=== PATIENT | female | born 1950 | race Caucasian/White ===

== ENCOUNTER 2016-12-04 13:46 | Emergency (ER) | payer MEDICARE, OTHER ==
[~2016-12-04 13:46] MED LIST: ESTRACE0.5 MG; HCTZ; LISINOPRIL; SYNTHROID0.15 MG
== END 2016-12-04 14:14 | disposition home or self-care (01) ==
LOC: SED 13:46
DX: T78.3XXA Angioneurotic edema, initial encounter (principal); I10 Essential (primary) hypertension; Z90.710 Acquired absence of both cervix and uterus; F17.210 Nicotine dependence, cigarettes, uncomplicated
CPT/HCPCS: 96374; 96375; 99284; J1200; J2405; J2930